=== PATIENT | female | born 1990 | race Caucasian/White ===

== ENCOUNTER 2018-02-09 10:53 | Emergency (ER) | payer SELFPAY ==
[2018-02-09] MEDS ORDERED: Acetaminophen 500 MG TAB ONE (12:08)
== END 2018-02-09 12:04 | disposition home or self-care (01) ==
LOC: ERS 10:53
DX: K02.9 Dental caries, unspecified (principal); D64.9 Anemia, unspecified; F41.9 Anxiety disorder, unspecified; Z87.891 Personal history of nicotine dependence
CPT/HCPCS: 99282

== ENCOUNTER 2018-02-10 13:19 | Emergency (ER) | payer SELFPAY | END 2018-02-10 14:20 | disposition home or self-care (01) | LOC: ERS 13:19 | DX: K08.89 Other specified disorders of teeth and supporting structures (principal); F41.9 Anxiety disorder, unspecified; Z87.891 Personal history of nicotine dependence | CPT/HCPCS: 64400 ==

== ENCOUNTER 2018-02-23 16:07 | Emergency (ER) | payer SELFPAY ==
[2018-02-23] MEDS ORDERED: Amoxicillin/Potassium Clav 875 MG TAB ONE (16:44)
== END 2018-02-23 16:53 | disposition home or self-care (01) ==
LOC: ERS 16:07
DX: K02.7 Dental root caries (principal); K04.7 Periapical abscess without sinus; K03.81 Cracked tooth; R59.0 Localized enlarged lymph nodes; D64.9 Anemia, unspecified; F41.9 Anxiety disorder, unspecified; Z87.891 Personal history of nicotine dependence
CPT/HCPCS: 99282